=== PATIENT | female | born 1950 | race Caucasian/White ===

== ENCOUNTER 2017-04-12 16:35 | Emergency (ER) | payer OTHER ==
[~2017-04-12] VITALS: Ht 170.2 cm; Wt 74.0 kg
[2017-04-12 16:37] VITALS: BP 146/99
[2017-04-12] MEDS ORDERED: SODIUM CHLORIDE 0.9% 1,000ML IVBOLUS ONE (17:00)
[2017-04-12] MEDS ORDERED: SODIUM CHLORIDE FLUSH 10ML SYR IVF ONE (17:00)
[2017-04-12 17:22] LABS: HEMATOCRIT 41.4 % (34.6-47.8); HEMOGLOBIN 13.9 g/dL (11.7-16.4); WHITE BLOOD COUNT 6.5 x10^3/uL (3.4-10)
[2017-04-12 17:32] LABS: PATH.CAST-FLAG NOT PRESENT; SPERM-FLAG NOT PRESENT; SRC-FLAG NOT PRESENT; XTAL-FLAG NOT PRESENT; YLC-FLAG NOT PRESENT
[2017-04-12 17:33] LABS: ASPARTATE AMINO TRANSFERASE 35 U/L (15-37); BLOOD UREA NITROGEN 5 mg/dL (7-18)
== END 2017-04-12 18:05 | disposition left against medical advice (07) ==
LOC: ED 17:26
DX: R10.84 Generalized abdominal pain (principal); Z88.6 Allergy status to analgesic agent; F17.200 Nicotine dependence, unspecified, uncomplicated; J44.9 Chronic obstructive pulmonary disease, unspecified; M19.90 Unspecified osteoarthritis, unspecified site; Z86.718 Personal history of other venous thrombosis and embolism
CPT/HCPCS: 36415; 80053; 80307; 81001; 83690; 85025; 85610; 85730; 87077; 87086; 87186; 99284

== ENCOUNTER 2018-03-05 18:09 | Inpatient (IN) | payer MEDICARE, OTHER ==
[~2018-03-05] VITALS: Ht 170.2 cm; Wt 68.8 kg
[2018-03-05 18:44] LABS: MEAN CORPUSCULAR HEMOGLOBIN 31.3 pg (27.0-34.8); MEAN CORPUSCULAR HGB CONC 33.4 g/dL (32.4-35.8); MEAN CORPUSCULAR VOLUME 93.7 fL (80-100); MEAN PLATELET VOLUME 8.5 fL (7.4-10.4); PLATELET COUNT 484 x10^3/uL (130-400); RED BLOOD COUNT 4.58 x10^6/uL (3.82-5.3); RED CELL DISTRIBUTION WIDTH 13.6 % (9.6-15.2)
[2018-03-05 18:55] LABS: ALBUMIN 3.9 g/dL (3.4-5.0); ANION GAP 14 mmol/L (5-15); CHLORIDE 104 mmol/L (98-107); SALICYLATE LEVEL 2.3 mg/dL (2.8-20.0)
[2018-03-05 18:58] LABS: ALANINE AMINOTRANSFERASE 22 U/L (12-78); ALKALINE PHOSPHATASE 92 U/L (45-117); BILIRUBIN,TOTAL 0.4 mg/dL (0.2-1.0); CREATININE 0.69 mg/dL (0.55-1.02); TOTAL PROTEIN 7.9 g/dL (6.4-8.2)
[2018-03-05] MEDS ORDERED: SODIUM CHLORIDE 0.9% 1,000ML IVBOLUS ONE (19:00)
[2018-03-05] MEDS ORDERED: PROMETHAZINE 25 MG/ML, 1ML IM ONE (19:00)
[2018-03-05 19:07] LABS: ACETAMINOPHEN < 2 mcg/mL (10-30)
[2018-03-05 19:16] LABS: MD YES
[2018-03-05 19:18] LABS: EOS#(MANUAL) 0.38 x10^3/uL (0.0-0.4); EOS% (MANUAL) 3 % (1-7); LYMPH#(MANUAL) 6.53 x10^3/uL (1-3.4); LYMPHS% (MANUAL) 51 % (22-44); MONOS#(MANUAL) 0.77 x10^3/uL (0.3-2.7); MONOS% (MANUAL) 6 % (2-9); SEG#(MANUAL) 5.12 x10^3/uL (1.8-6.8); SEGS% (MANUAL) 40 % (42-75)
[2018-03-05 19:19] LABS: <PLATELET ESTIMATE> INCREASED; <PLT MORPHOLOGY> NORMAL PLT MORPH; <RBC MORPHOLOGY> NORMAL
[2018-03-05 19:23] LABS: TROPONIN I < 0.015 ng/mL (0.000-0.045)
[2018-03-05] MEDS ORDERED: POTASSIUM CHLORIDE 20 MEQ in SODIUM CHLORIDE 0.9% 1,000 ML IV ONE (19:50)
[2018-03-05] MEDS: NS + 20MEQ KCL 1,000 ML IV SCH (20:08)
[2018-03-05] MEDS ORDERED: POTASSIUM CHLORIDE 20 MEQ TAB.ER.PRT PO ONE (20:30)
[2018-03-05] MEDS ORDERED: BISACODYL 10 MG SUPP PR PRN (20:30)
[2018-03-05] MEDS ORDERED: POLYETHYLENE GLYCOL 17 GM PACKET PO PRN (20:30)
[2018-03-05] MEDS ORDERED: ONDANSETRON 2MG/ML, 2ML IVPush PRN (20:30)
[2018-03-05] MEDS ORDERED: NS + 20MEQ KCL 1,000 ML IV ONE (20:51)
[2018-03-05] MEDS ORDERED: POTASSIUM CHLORIDE 20 MEQ TAB.ER.PRT ONE (20:51)
[2018-03-05 21:36] LABS: CULTURE INDICATED? YES; MICROSCOPIC INDICATED
[2018-03-05 21:42] LABS: AMPHETAMINE SCREEN, URINE Negative (Negative); BARBITURATE SCREEN, URINE Negative (Negative); BENZODIAZEPINE SCREEN, URINE Positive (Negative); CANNABINOID SCREEN, URINE Negative (Negative); COCAINE SCREEN, URINE Negative (Negative); METHADONE SCREEN, URINE Negative (Negative); OPIATE SCREEN, URINE Negative (Negative)
[2018-03-05 23:11] VITALS: BP 143/76
[2018-03-06 01:34] VITALS: BP 155/79
[2018-03-06] MEDS: NS + 20MEQ KCL 1,000 ML IV SCH ×3 (05:15→23:36)
[2018-03-06 05:19] LABS: BASOPHILS # (AUTO) 0.08 x10^3/uL (0-0.1); BASOPHILS % (AUTO) 1 % (0-1); EOSINOPHILS % (AUTO) 0 % (1-7); LYMPHOCYTES # (AUTO) 1.71 x10^3/uL (1-3.4); LYMPHOCYTES % (AUTO) 15 % (22-44); MD NO; MEAN CORPUSCULAR HEMOGLOBIN 31.5 pg (27.0-34.8); MEAN CORPUSCULAR VOLUME 92.5 fL (80-100); MEAN PLATELET VOLUME 8.7 fL (7.4-10.4); MONOCYTES # (AUTO) 0.53 x10^3/uL (0.2-0.8); MONOCYTES % (AUTO) 5 % (2-9); NEUTROPHILS # (AUTO) 9.24 x10^3/uL (1.8-6.8); NEUTROPHILS % (AUTO) 80 % (42-75); PLATELET COUNT 434 x10^3/uL (130-400); RED BLOOD COUNT 4.46 x10^6/uL (3.82-5.3); RED CELL DISTRIBUTION WIDTH 13.8 % (9.6-15.2)
[2018-03-06 05:30] LABS: ALANINE AMINOTRANSFERASE 24 U/L (12-78); ALBUMIN 3.8 g/dL (3.4-5.0); ANION GAP 14 mmol/L (5-15); CALCIUM 8.5 mg/dL (8.5-10.1); CHLORIDE 103 mmol/L (98-107); CREATININE 0.72 mg/dL (0.55-1.02)
[2018-03-06 05:32] LABS: ALKALINE PHOSPHATASE 87 U/L (45-117); BILIRUBIN,TOTAL 0.4 mg/dL (0.2-1.0); TOTAL PROTEIN 7.7 g/dL (6.4-8.2)
[2018-03-06 05:47] LABS: TROPONIN I 0.051 ng/mL (0.000-0.045)
[2018-03-06 06:35] VITALS: BP 153/76
[2018-03-06] MEDS: SENNA/DOCUSATE TABLET PO SCH (08:54)
[2018-03-06 09:24] LABS: TROPONIN I 0.037 ng/mL (0.000-0.045)
[2018-03-06] MEDS ORDERED: MAGNESIUM OXIDE 400 MG TABLET PO ONE (10:00)
[2018-03-06 12:48] VITALS: BP 149/91
[2018-03-06 19:04] VITALS: BP 157/79
[2018-03-06] MEDS: NITROFURANTOIN (MACROBID) 100 MG CAPSULE PO SCH (19:39)
[2018-03-07 02:18] VITALS: BP 137/83
[2018-03-07 07:00] VITALS: BP 143/109
[2018-03-07 08:17] LABS: BASOPHILS # (AUTO) 0.01 x10^3/uL (0-0.1); BASOPHILS % (AUTO) 0 % (0-1); EOSINOPHILS % (AUTO) 1 % (1-7); LYMPHOCYTES # (AUTO) 1.82 x10^3/uL (1-3.4); LYMPHOCYTES % (AUTO) 21 % (22-44); MD NO; MEAN CORPUSCULAR HEMOGLOBIN 31.3 pg (27.0-34.8); MEAN CORPUSCULAR HGB CONC 33.7 g/dL (32.4-35.8); MEAN CORPUSCULAR VOLUME 92.9 fL (80-100); MEAN PLATELET VOLUME 8.6 fL (7.4-10.4); MONOCYTES # (AUTO) 0.52 x10^3/uL (0.2-0.8); MONOCYTES % (AUTO) 6 % (2-9); NEUTROPHILS % (AUTO) 72 % (42-75); PLATELET COUNT 337 x10^3/uL (130-400); RED BLOOD COUNT 4.46 x10^6/uL (3.82-5.3); RED CELL DISTRIBUTION WIDTH 13.8 % (9.6-15.2)
[2018-03-07] MEDS: SENNA/DOCUSATE TABLET PO SCH (09:00)
[2018-03-07] MEDS: NS + 20MEQ KCL 1,000 ML IV SCH (09:13)
[2018-03-07] MEDS: NITROFURANTOIN (MACROBID) 100 MG CAPSULE PO SCH (09:13)
[2018-03-07] MEDS ORDERED: NITR100C6 PO (13:27)
[2018-03-07 14:00] VITALS: BP 171/84
[2018-03-07] MEDS ORDERED: PNEUMOCOCCAL 23 VACCINE IM-VACC ONE (16:30)
== END 2018-03-07 17:10 | DRG 917 ==
LOC: ED 18:42 → EDIP 19:50 → 4EST 22:46
PROVIDERS: ADMIT Internal Medicine; ATTEND Internal Medicine
DX: T50.5X2A Poisoning by appetite depressants, intentional self-harm, initial encounter (principal); A41.9 Sepsis, unspecified organism; I24.8 Other forms of acute ischemic heart disease; N39.0 Urinary tract infection, site not specified; E87.2 Acidosis; F17.210 Nicotine dependence, cigarettes, uncomplicated; I16.0 Hypertensive urgency; F32.9 Major depressive disorder, single episode, unspecified; B96.20 Unspecified Escherichia coli [E. coli] as the cause of diseases classified elsewhere; B96.89 Other specified bacterial agents as the cause of diseases classified elsewhere; D72.821 Monocytosis (symptomatic); E87.6 Hypokalemia; J44.9 Chronic obstructive pulmonary disease, unspecified; I10 Essential (primary) hypertension; Y90.8 Blood alcohol level of 240 mg/100 ml or more; F10.120 Alcohol abuse with intoxication, uncomplicated; M19.90 Unspecified osteoarthritis, unspecified site; R00.0 Tachycardia, unspecified; Y92.89 Other specified places as the place of occurrence of the external cause
CPT/HCPCS: 36415; 80053; 80307; 80329; 81001; 83735; 84484; 85025; 87077; 87086; 87186; 90732; 93005; 96372; 99291; J2550; J3480; G0480; J7030

== ENCOUNTER 2019-09-17 13:49 | Emergency (ER) | payer MEDICARE, OTHER ==
[~2019-09-17] VITALS: Ht 170.2 cm; Wt 69.4 kg
[~2019-09-17 13:49] MED LIST: NITR100C6 PO
[2019-09-17 14:23] VITALS: BP 167/88
--- NOTE | 2019-09-17 14:34 | NUR ---
PT HERE WITH C/O RIGHT SHOULDER PAIN, DENIES TRAUMA BUT DOES STATE PREVIOUS FX.
[2019-09-17] MEDS ORDERED: OXYcodone/APAP 5/325MG TABLET ONE (14:53)
[2019-09-17] MEDS ORDERED: OXYcodone/APAP 5/325MG TABLET PO ONE (15:00)
--- NOTE | 2019-09-17 15:37 | NUR ---
Patient/Caregiver given discharge instructions and they have confirmed that they understand the instructions. Patient ambulatory with steady gait. SLING APPLIED PER REQUEST.
== END 2019-09-17 15:52 | disposition home or self-care (01) ==
LOC: ED 15:00
DX: G89.29 Other chronic pain (principal); M25.511 Pain in right shoulder; M77.9 Enthesopathy, unspecified; M19.90 Unspecified osteoarthritis, unspecified site; J44.9 Chronic obstructive pulmonary disease, unspecified; F17.200 Nicotine dependence, unspecified, uncomplicated
CPT/HCPCS: 99283